=== PATIENT | female | born 2000 | race Caucasian/White ===

== ENCOUNTER 2024-01-01 10:31 | Emergency (ER) | payer MEDICAID ==
[~2024-01-01] VITALS: Ht 165.1 cm; Wt 54.0 kg
[2024-01-01 10:44] VITALS: O2SAT 100
[2024-01-01 12:41] LABS: BASOPHILS % 0.5 % (0.0-2.0); EOSINOPHILS % 4.4 % (0.0-5.0); HEMATOCRIT. 36.1 % (36.0-48.0); HEMOGLOBIN. 12.3 g/dL (12.0-16.0); LYMPHOCYTES % 42.2 % (20.0-50.0); MEAN CORPUSCULAR HEMOGLOBIN 31.4 pg (28.0-32.0); MEAN CORPUSCULAR HGB CONC 34.2 g/dL (31.0-37.0); MEAN CORPUSCULAR VOLUME 91.8 fL (81.0-99.0); MEAN PLATELET VOLUME 8.2 fl (7.4-10.4); NEUTROPHILS % 44.9 % (40.0-76.0); PLATELET 251 x1000/uL (130-400); RED BLOOD CELL COUNT 3.93 mill/uL (4.2-5.4); RED CELL DISTRIBUTION WIDTH 12.8 % (11.6-14.6); WHITE BLOOD COUNT 6.8 x1000/uL (4.5-11.0)
[2024-01-01 12:51] LABS: CHLORIDE 106 mEq/L (98-107); POTASSIUM 3.8 mEq/L (3.5-5.1); SODIUM 138 mEq/L (136-145)
[2024-01-01 12:52] LABS: CALCIUM 10.6 mg/dL (8.7-10.4); CARBON DIOXIDE 26 mEq/L (21-32)
[2024-01-01 12:57] LABS: CREATININE 0.8 mg/dL (0.6-1.0); GLUCOSE 73 mg/dL (70-105); UREA NITROGEN BLOOD 12 mg/dL (9-23)
[2024-01-01 13:19] LABS: HCG SCREEN NEGATIVE
[2024-01-01] MEDS: ACETAMINOPHEN 325MG TABLET PO ONE (14:08)
[2024-01-01] MEDS: SODIUM CHLORIDE 0.9% 500 ML IV ONE (14:13)
[2024-01-01] MEDS: METOCLOPRAMIDE HCL 10MG/2ML VIAL IV ONE (14:13)
[2024-01-01] MEDS ORDERED: ASPI-740 PO (16:01)
[2024-01-01 16:34] VITALS: BP 124/75; PULSE 74; RESP 18; TEMP 98.6
== END 2024-01-01 16:45 | disposition home or self-care (01) ==
LOC: ER 10:31
DX: R51.9 Headache, unspecified (principal); H53.2 Diplopia
CPT/HCPCS: 80048; 84703; 85025; 36415; 70450; 70551; 96361; 96374; 99285; J2765; J7040; Z7610 ×2